=== PATIENT | male | born 2000 | race Caucasian/White ===

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

== ENCOUNTER 2021-02-01 10:53 | Emergency (ER) | payer OTHER, SELFPAY ==
--- NOTE | ~2021-02-01 | XR_ITS ---
EXAMINATION: XR knee RT min 4V DATE: 02/01/2021 11:20 INDICATION: Anterior right knee pain after knee gave out and popped TECHNIQUE: Anteroposterior, 2 oblique, sunrise and crosstable lateral views of the right knee were ob tained COMPARISON: None. FINDINGS: Alignment is normal. No fracture. No joint effusion/layering lipohemarthrosis. Soft tissues are unre markable. IMPRESSION: 1. Negative right knee radiographs. Reviewed, dictated and finalized at location A.
[2021-02-01 11:01] VITALS: BP 132/79; PULSE 75; RESP 16; TEMP 36.9; O2SAT 100
--- NOTE | 2021-02-01 11:24 | PC.NURSE ---
PT DECLINED ICE FOR COMFORT AND WHEELCHAIR TO RADIOLOGY
--- NOTE | 2021-02-01 11:46 | ED.LOWEXIN ---
HPI - Extremity Injury (Lower) General Chief Complaint: Extremity Injury, Lower Stated Complaint: Right Knee Injury Time Seen by Provider: 02/01/21 11:40 Source: patient and RN notes reviewed Mode of arrival: ambulatory Limitations: no limitations History of Present Illness HPI Narrative: Patient presents today complaining of right knee pain x2 days. Reports he was sitting down and felt his knee pop 2 days ago, then it popped again today and his knee gave out . He has been wearing a knee brace for the last couple of days, which does help when he is ambulating. He is currently pain-free, and the pain is intermittent. He has also been taking ibuprofen. Denies numbness or tingling in the leg or foot. MD complaint: knee injury Related Data Home Medications Medication Instructions Recorded Confirmed No Home Medications 02/01/21 02/01/21 Allergies Allergy/AdvReac Type Severity Reaction Status Date / Time Sulfa (Sulfonamide Allergy Intermediate Hives / Verified 02/01/21 11:14 Antibiotics) Red Face Review of Systems Review of Systems: CONSTITUTIONAL: Denies body aches, fever, chills, or sweats. EYES: Denies visual changes, redness, or discharge. ENT: Denies rhinorrhea, congestion, sore throat, or otalgia. CARDIOVASCULAR: Denies chest pain, palpitations, or edema. RESPIRATORY: Denies cough or dyspnea. GASTROINTESTINAL: Denies abdominal pain, nausea, vomiting, or diarrhea. GENITOURINARY: Denies dysuria or hematuria. SKIN: Denies rash, itching, or wounds. MUSCULOSKELETAL: Denies back pain or myalgia. + Right knee pain NEUROLOGIC: Denies headache, numbness, tingling, or weakness. PSYCH: Denies depression or anxiety. [facility] Past Medical History Medical History ADD (attention deficit disorder) ADHD (attention deficit hyperactivity disorder) Anxiety Bronchitis Fracture, finger right 5th finger Right wrist fracture Strep pharyngitis Surgical History Surgical History History of eye surgery as child Family History Family History Grandparent Diabetes mellitus Social History Social History Smoking status: Never smoker Alcohol intake: never Substance use: never Gender identity (if verbalized by the patient): Male Comments At time of signature, I have reviewed and agree with nursing past medical, surgical, social and family history unless otherwise noted. Please see nursing chart for further information. There is no relevant family history pertinent to the presenting complaint Exam Narrative: GENERAL: Well-appearing, well-nourished, and in no acute distress. HEAD: Normocephalic, atraumatic. EYES: EOMI. No redness or drainage. Conjunctivae normal. ENT: Mucous membranes pink and moist. NECK: Normal AROM. CHEST: No respiratory distress. EXTREMITIES: Right knee: Tenderness to the medial joint line. No edema, ecchymosis, or erythema noted. Pain with full extension. No pain with flexion, internal or external rotation. Distal sensation intact. Capillary refill normal. Posterior tibial pulse normal. SKIN: Warm, dry, no rash. Capillary refill normal. Normal skin turgor. NEURO: No focal deficits. Alert and oriented x3. Gait steady. PSYCH: Normal affect. No signs of depression or anxiety. Course Vital Signs Vital signs: Vital Signs Temperature 98.4 F 02/01/21 11:01 Pulse Rate 75 02/01/21 11:01 Respiratory Rate 16 02/01/21 11:01 Blood Pressure 132/79 02/01/21 11:01 Pulse Oximetry 100 02/01/21 11:01 Temperature 98.4 F 02/01/21 11:01 Pulse Rate 75 02/01/21 11:01 Respiratory Rate 16 02/01/21 11:01 Blood Pressure 132/79 02/01/21 11:01 Pulse Oximetry 100 02/01/21 11:01 Reviewed. Pt has been instructed to follow up w
== END 2021-02-01 11:55 | disposition home or self-care (01) ==
PROVIDERS: Emergency Provider Nurse Practitioner
DX: M25.561 Pain in right knee (principal)
CPT/HCPCS: 73564; 99213; G0463

== ENCOUNTER 2021-04-07 10:30 | Emergency (ER) | payer OTHER, SELFPAY ==
--- NOTE | 2021-04-07 10:39 | ED.GENADULT ---
HPI - General Adult General Chief complaint: Upper Respiratory Infection Stated complaint: Cough/Ear Pain Time Seen by Provider: 04/07/21 10:40 Source: patient Mode of arrival: ambulatory Limitations: no limitations History of Present Illness HPI narrative: 21-year-old male patient presents to the [facility] with complaints of cold symptoms x1 week. Patient states he has had a runny nose, cough, sore throat and yesterday developed some right ear pain. Patient has been fully vaccinated against Covid. Related Data Allergies Allergy/AdvReac Type Severity Reaction Status Date / Time Sulfa (Sulfonamide Allergy Intermediate Hives / Verified 04/07/21 10:43 Antibiotics) Red Face Review of Systems Review of Systems: CONSTITUTIONAL: Denies fever, chills, or sweats. EYES: Denies visual changes, redness, or discharge. ENT: Positive rhinorrhea, congestion, sore throat, and right otalgia. CARDIOVASCULAR: Denies chest pain, palpitations, or edema. RESPIRATORY: Positive cough, denies dyspnea. GASTROINTESTINAL: Denies abdominal pain, nausea, vomiting, or diarrhea. GENITOURINARY: Denies dysuria or hematuria. SKIN: Denies rash or itching. MUSCULOSKELETAL: Denies back pain, joint pain, or myalgia. NEUROLOGIC: Denies headache, numbness, or weakness. PSYCHIATRIC: Denies anxiety or depression. PMFSH Past Medical History Medical History ADD (attention deficit disorder) ADHD (attention deficit hyperactivity disorder) Anxiety Bronchitis Fracture, finger right 5th finger Right wrist fracture Strep pharyngitis Surgical History Surgical History History of eye surgery as child Family History Family History Grandparent Diabetes mellitus Social History Social History Smoking status: Never smoker Alcohol intake: never Substance use: never Gender identity (if verbalized by the patient): Male Comments At the time of my signature I agree with nursing past medical history, surgical, social, and family history. There is no relevant family history pertinent to the presenting complaint. Exam Narrative: GENERAL: Well-appearing, well-nourished, and in no acute distress. HEAD: Normocephalic, atraumatic. EYES: PERRLA and EOMI. ENT: Nares with erythema and edema noted bilaterally, no rhinorrhea or epistaxis. Mucous membranes moist. Posterior pharynx with no erythema, tonsillar edema, exudates or lesions present. Postnasal drip noted to posterior pharynx. Bilateral TMs are clear. There is a little bit of fluid noted behind the right TM. NECK: Supple. No lymphadenopathy CHEST: Clear to auscultation. No respiratory distress. HEART: Regular rate and rhythm. No murmur heard. Normal peripheral pulses. ABDOMEN: Soft, nontender, nondistended, normal active bowel sounds. EXTREMITIES: Normal range of motion. No edema. SKIN: Warm, dry, no rash. NEURO: No focal deficits. Alert and oriented x3. Course Reevaluation(s) Reevaluation #1: Reevaluated patient notified him that his rapid Covid and strep are both negative today. Discussed with him I think this is most likely a sinusitis therefore we will discharge him home with a daily antihistamine and nasal steroid if his ear pain continues to worsen despite the medications I would encourage him to be reevaluated for possible antibiotics. We are going to try and prevent infection to the ear however if he continues to have symptoms he may need antibiotics for an infection in the future. Patient verbalized understanding denies any other questions or concerns at this time. Date: 04/07/21 Time: 11:14 Vital Signs Vital signs: Vital Signs Temperature 36.9 C 04/07/21 10:44 Pulse Rate 75 04/07/21 10:44 Respiratory Rate 16 04/07/21 10:44 Blood Pressure 133/74 04/07/21 10:44 Pu
[2021-04-07 10:44] VITALS: BP 133/74; PULSE 75; RESP 16; TEMP 36.9; O2SAT 100
== END 2021-04-07 11:19 | disposition home or self-care (01) ==
PROVIDERS: Emergency Provider Nurse Practitioner Family
DX: J01.90 Acute sinusitis, unspecified (principal); Z20.822 Contact with and (suspected) exposure to COVID-19
CPT/HCPCS: 87081; 87426; 87880; 99213; C9803; G0463

== ENCOUNTER 2021-04-10 08:17 | Emergency (ER) | payer OTHER, SELFPAY ==
[2021-04-10 08:30] VITALS: BP 126/70; PULSE 98; RESP 16; TEMP 36.9; O2SAT 98
--- NOTE | 2021-04-10 08:33 | ED.URI ---
HPI - URI/Sore Throat General Chief Complaint: Upper Respiratory Infection Stated Complaint: cough ears History of Present Illness HPI Narrative: This is a 21-year-old male that presents to the urgent care complaining of cough congestion and feeling well. According to patient he was seen here few days ago was ordered Zyrtec states that they could not afford it at the time just picked up some generic Zyrtec yesterday took 1 dose and comes back because he still not feeling well. Patient is fully vaccinated Related Data Allergies Allergy/AdvReac Type Severity Reaction Status Date / Time Sulfa (Sulfonamide Allergy Intermediate Hives / Verified 04/10/21 08:39 Antibiotics) Red Face Review of Systems Review of Systems: Cough congestion sinus drainage CONSTITUTIONAL: Denies fever, chills, or sweats. ENT: Reports rhinorrhea, congestion, sore throat, or otalgia. RESPIRATORY: Reports cough or dyspnea. All systems reviewed & are unremarkable except as noted in HPI and below PMFSH Past Medical History Medical History ADD (attention deficit disorder) ADHD (attention deficit hyperactivity disorder) Anxiety Bronchitis Fracture, finger right 5th finger Right wrist fracture Strep pharyngitis Surgical History Surgical History History of eye surgery as child Family History Family History Grandparent Diabetes mellitus Social History Social History Smoking status: Never smoker Alcohol intake: never Substance use: never Gender identity (if verbalized by the patient): Male Comments At time as signature, I have reviewed and agree with nursing past medical, social, surgical and family history. Please see nursing chart for further information. There is no relevant family history pertinent to the presenting complaint. Exam Narrative: GENERAL:Well-appearing, well-nourished, and in no acute distress. HEAD:Normocephalic, atraumatic. EYES: PERRLA and EOMI. ENT: Nares clear, no rhinorrhea or epistaxis. Mucous membranes moist. NECK: Supple. CHEST: Clear to auscultation. No respiratory distress. HEART: Regular rate and rhythm. No murmur heard. Normal peripheral pulses. ABDOMEN: Soft, nontender, nondistended, normal active bowel sounds. EXTREMITIES: Normal range of motion. No edema. SKIN: Warm, dry, no rash. NEURO: No focal deficits. Alert and oriented x3. Course Vital Signs Vital signs: Vital Signs Temperature 98.4 F 04/10/21 08:30 Pulse Rate 98 04/10/21 08:30 Respiratory Rate 16 04/10/21 08:30 Blood Pressure 126/70 04/10/21 08:30 Pulse Oximetry 98 04/10/21 08:30 Temperature 98.4 F 04/10/21 08:30 Pulse Rate 98 04/10/21 08:30 Respiratory Rate 16 04/10/21 08:30 Blood Pressure 126/70 04/10/21 08:30 Pulse Oximetry 98 04/10/21 08:30 MDM - URI/Sore Throat Differential Diagnosis Differential diagnosis: Likely upper respiratory infection, viral infection and influenza Lab Data Labs: Influenza A Screen Positive Reference Range: Negative Influenza B Screen Negative Reference Range: Negative Discharge Plan Discharge Clinical Impression: Viral infection, Influenza A Patient Disposition: Home, Self-Care Condition: Stable Instructions: Antibiotic Form, Influenza (ED) Additional Instructions: Viral illness may last between 7-12days; antibiotic is NOT recommended at this time. Recommend antihistamine such as Benadryl at night time and Claritin/Zyrtec/Candace during the day Also, recommend symptomatic treatment includes: rest, fluids, and increase humidity of the air at home. Recommend Acetaminophen or nonsteroidal anti-inflammato
== END 2021-04-10 09:10 | disposition home or self-care (01) ==
PROVIDERS: Emergency Provider Nurse Practitioner Family
DX: B34.9 Viral infection, unspecified (principal); J10.1 Influenza due to other identified influenza virus with other respiratory manifestations
CPT/HCPCS: 87804; 99213; G0463

== ENCOUNTER 2021-07-15 08:32 | Emergency (ER) | payer OTHER, SELFPAY ==
[2021-07-15 08:38] VITALS: BP 121/68; PULSE 113; RESP 20; TEMP 37.2; O2SAT 98
--- NOTE | 2021-07-15 08:59 | ED.URI ---
HPI - URI/Sore Throat General Chief Complaint: Upper Respiratory Infection Stated Complaint: congestion cough tight chest chills Time Seen by Provider: 07/15/21 08:52 Source: patient and RN notes reviewed Mode of arrival: ambulatory Limitations: no limitations History of Present Illness HPI Narrative: Patient presents today complaining of 5-day history of cough, body aches, chills and sweats, headache. Symptoms have worsened over the last 3 days. Denies shortness of breath, fever. He has been taking Tylenol with some relief. He has not been vaccinated against influenza. MD elicited complaint: cough Related Data Home Medications Medication Instructions Recorded Confirmed No Home Medications 07/15/21 07/15/21 Allergies Allergy/AdvReac Type Severity Reaction Status Date / Time Sulfa (Sulfonamide Allergy Intermediate Hives / Verified 07/15/21 08:50 Antibiotics) Red Face Review of Systems Review of Systems: CONSTITUTIONAL: Denies fever. + Body aches, chills, sweats EYES: Denies visual changes, redness, or discharge. ENT: Denies rhinorrhea, congestion, sore throat, or otalgia. CARDIOVASCULAR: Denies chest pain, palpitations, or edema. RESPIRATORY: Denies dyspnea.+ Cough GASTROINTESTINAL: Denies abdominal pain, nausea, vomiting, or diarrhea. GENITOURINARY: Denies dysuria or hematuria. SKIN: Denies rash, itching, or wounds. MUSCULOSKELETAL: Denies back pain, joint pain, or myalgia. NEUROLOGIC: Denies numbness, tingling, or weakness.+ Headache PSYCH: Denies depression or anxiety. [facility] Past Medical History Medical History ADD (attention deficit disorder) ADHD (attention deficit hyperactivity disorder) Anxiety Bronchitis Fracture, finger right 5th finger Right wrist fracture Strep pharyngitis Surgical History Surgical History History of eye surgery as child Family History Family History Grandparent Diabetes mellitus Social History Social History Smoking status: Never smoker Alcohol intake: never Substance use: never Gender identity (if verbalized by the patient): Male Comments At time of signature, I have reviewed and agree with nursing past medical, surgical, social and family history unless otherwise noted. Please see nursing chart for further information. There is no relevant family history pertinent to the presenting complaint Exam Narrative: GENERAL: Well-appearing, well-nourished, and in no acute distress. HEAD: Normocephalic, atraumatic. EYES: EOMI. No redness or drainage. Conjunctivae normal. ENT: Mucous membranes pink and moist. Nares congested. No rhinorrhea. TMs normal bilaterally. Throat normal. Uvula midline. NECK: Normal AROM. Supple. No lymphadenopathy. CHEST: No respiratory distress. Clear to auscultation. HEART: Regular rate and rhythm. No murmur appreciated. Normal peripheral pulses. EXTREMITIES: Normal range of motion. No edema. SKIN: Warm, dry, no rash. Capillary refill normal. Normal skin turgor. NEURO: No focal deficits. Alert and oriented x3. Gait steady. PSYCH: Normal affect. No signs of depression or anxiety. Course Course Level of Care: Express Care Visit Vital Signs Vital signs: Vital Signs Temperature 99.0 F 07/15/21 08:38 Pulse Rate 113 H 07/15/21 08:38 Respiratory Rate 20 07/15/21 08:38 Blood Pressure 121/68 07/15/21 08:38 Pulse Oximetry 98 07/15/21 08:38 Temperature 99.0 F 07/15/21 08:38 Pulse Rate 113 H 07/15/21 08:38 Respiratory Rate 20 07/15/21 08:38 Blood Pressure 121/68 07/15/21 08:38 Pulse Oximetry 98 07/15/21 08:38 Reviewed. Pt has been instructed to follow up with his PCP regarding his elevated blood pressure today. MDM - URI/Sore Throat Differential
== END 2021-07-15 09:05 | disposition home or self-care (01) ==
PROVIDERS: Emergency Provider Nurse Practitioner
DX: J10.1 Influenza due to other identified influenza virus with other respiratory manifestations (principal)
CPT/HCPCS: 87804; 99213; G0463

== ENCOUNTER 2022-02-07 09:27 | Emergency (ER) | payer OTHER, SELFPAY ==
[2022-02-07 09:36] VITALS: BP 136/69; PULSE 70; RESP 16; TEMP 37.1; O2SAT 99
--- NOTE | 2022-02-07 10:36 | ED.URI ---
HPI - URI/Sore Throat General Chief Complaint: Upper Respiratory Infection Stated Complaint: Sore throat cough head and ears Time Seen by Provider: 02/07/22 10:36 Source: patient, RN notes reviewed and old records reviewed Mode of arrival: ambulatory Limitations: no limitations History of Present Illness HPI Narrative: 22 year old male who presents to [facility] care with complaints of cough, nasal congestion, sore throat and right ear pain for one week duration. Patient reports that his girlfriend was diagnosed with flu 2 days ago. Patient reports that he has had COVID vaccinations and Booster,denies any body aches, has had low grade temps with some chills.Patient report that he is taking some OTC Tylenol and Ibuprofen for his symptoms. MD elicited complaint: cough, sore throat and other (ear pain) Pertinent past history: other (strep throat) Onset (ago): week(s) (1) Pain scale (0-10): 3 Related Data Allergies Allergy/AdvReac Type Severity Reaction Status Date / Time Sulfa (Sulfonamide Allergy Intermediate Hives / Verified 07/15/21 08:50 Antibiotics) Red Face Review of Systems Review of Systems: CONSTITUTIONAL: Reports malaise, chills, sweats, low grade fever. EYES: Denies visual changes, redness, or discharge. ENT: Reports rhinorrhea, congestion, sinus pain, right otalgia and sore throat. CARDIOVASCULAR: Denies chest pain, palpitations, or edema. RESPIRATORY: Reports cough.? Denies dyspnea. GASTROINTESTINAL: Denies abdominal pain, nausea, vomiting, diarrhea SKIN: Denies rash or itching. MUSCULOSKELETAL: Denies myalgia. NEUROLOGIC: reports headache. All systems reviewed & are unremarkable except as noted in HPI and below PMFSH Past Medical History Medical History ADD (attention deficit disorder) ADHD (attention deficit hyperactivity disorder) Anxiety Bronchitis Fracture, finger right 5th finger Right wrist fracture Strep pharyngitis Surgical History Surgical History History of eye surgery as child Family History Family History Grandparent Diabetes mellitus Social History Social History (Reviewed 02/09/22 @ 10:59 by AGUS Brown Smoking status: Never smoker Alcohol intake: never Substance use: never Gender identity (if verbalized by the patient): Male Comments At time of signature, agree with nursing past medical, surgical, social and family history. There is no relevant family history pertinent to the presenting complaint Exam Narrative: GENERAL: Well-appearing, well-nourished, and in no acute distress. HEAD: Normocephalic EYES: PERRLA, conjunctivae clear ENT: Nares clear, turbinates edematous and erythematous, clear discharge. Mucous membranes moist. TM pearly saul with dull light reflex bilaterally; no tragal tenderness. Oropharynx erythematous without lesions. Tonsils not enlarged and without exudate, no drooling, no hoarseness, no trismus, uvula midline. NECK: Supple. No lymphadenopathy CHEST: Clear to auscultation, breath sounds equal. No wheezing, rhonchi, rales, or stridor. No respiratory distress, speaks in full sentences.cough noted with SAO2 99% on room air HEART: Regular rate and rhythm. No murmur heard. SKIN: Warm, dry, no rash. NEURO: Alert and oriented x3. PSYCH: Normal mood and affect Course Course Emergency Course: Patient is aware of diagnosis, understands and agrees to treatment plan.? Anticipatory guidance given.? Patient agrees to follow-up as directed and is aware of reasons to seek care at the emergency department. Portions of this record may have been created with voice recognition software Level of Care: Express Care Visit Vital Signs Vital signs: Vital Signs Temperature 37.1 C 02/07/22 09:36 Pulse Rate 70 02/07/22 09:36 Respiratory Rate 16
== END 2022-02-07 10:59 | disposition home or self-care (01) ==
PROVIDERS: Emergency Provider Registered Nurse; PCP Family Medicine
DX: J06.9 Acute upper respiratory infection, unspecified (principal); H92.01 Otalgia, right ear
CPT/HCPCS: 87804; 99213; G0463

== ENCOUNTER 2022-04-10 08:58 | Emergency (ER) | payer OTHER, SELFPAY ==
[2022-04-10 09:00] VITALS: BP 115/60; PULSE 84; RESP 20; TEMP 37; O2SAT 100
--- NOTE | 2022-04-10 09:07 | ED.DENTAL ---
HPI - Dental/Oral General Chief complaint: Dental/Oral Stated complaint: Toothache Time Seen by Provider: 04/10/22 09:07 Source: patient and RN notes reviewed History of Present Illness HPI Narrative: patient is a 22-year-old male who presents to urgent care with complaints of upper and lower right-sided dental pain. Patient states it started 2 weeks ago. Denies any fevers, nausea, vomiting. States he has been taking ibuprofen and Tylenol for the pain. Patient has not seen his dentist. No other acute complaints. No acute distress noted. Patient aware of the plan of care. Some parts of this dictation were generated by voice recognition software and may contain typographical and/or grammatical inaccuracies. Related Data Allergies Allergy/AdvReac Type Severity Reaction Status Date / Time Sulfa (Sulfonamide Allergy Intermediate Hives / Verified 07/15/21 08:50 Antibiotics) Red Face Review of Systems Review of Systems: CONSTITUTIONAL: Denies fever, chills, or sweats. EYES: Denies visual changes, redness, or discharge. ENT: Denies rhinorrhea, congestion, sore throat, or otalgia. Reports of right upper and lower dental pain CARDIOVASCULAR: Denies chest pain, palpitations, or edema. RESPIRATORY: Denies cough or dyspnea. GASTROINTESTINAL: Denies abdominal pain, nausea, vomiting, or diarrhea. GENITOURINARY: Denies dysuria or hematuria. SKIN: Denies rash or itching. MUSCULOSKELETAL: Denies back pain, joint pain, or myalgia. NEUROLOGIC: Denies headache, numbness, or weakness. All other systems reviewed are negative, except as documented in HPI. [facility] Past Medical History Medical History ADD (attention deficit disorder) ADHD (attention deficit hyperactivity disorder) Anxiety Bronchitis Fracture, finger right 5th finger Right wrist fracture Strep pharyngitis Surgical History Surgical History History of eye surgery as child Family History Family History Grandparent Diabetes mellitus Social History Social History Smoking status: Never smoker Alcohol intake: never Substance use: never Gender identity (if verbalized by the patient): Male Comments At the time of my signature, I reviewed and agree with the nursing past medical, surgical, social, and family history. There is no relevant family history pertinent to the patient complaint. Exam Narrative: GENERAL: This is a well-nourished, well-developed patient, in no apparent distress. HEAD: normocephalic, atraumatic. EYES: PERRL. Sclera clear/white. Vision is grossly intact. EARS: External ears normal, auditory canals clear and without drainage, TMs normal without perforation. Hearing grossly intact. NOSE: External nose normal with no obvious nasal discharge, nares without redness, no rhinorrhea. THROAT: Mucous membranes moist, posterior pharynx clear. DENTAL: tooth number 32 cutting through the gumline with mild surrounding erythema without edema or abscess. Tooth 1 Cutting through the gum line without edema. NECK: Neck supple, non-tender without lymphadenopathy, masses or thyromegaly. CARDIOVASCULAR: Regular rate and rhythm without murmurs, gallops, or rubs. RESPIRATORY: Clear to auscultation. Breath sounds equal bilaterally. No wheezes, rales, or rhonchi. SKIN: warm, intact with no suspicious lesions or rash, good texture and turgor. NEURO: awake, alert, and oriented to person, place and time. There were no obvious focal neurologic abnormalities. EXTREMITIES: No clubbing, cyanosis, or edema. Course Course Level of Care: Express Care Visit Vital Signs Vital signs: Vital Signs Temperature 98.6 F 04/10/22 09:00 Pulse Rate 84 04/10/22 09:00 Respiratory Rate 20 04/10/22 09:00 Blood Pressure 115/60 04/10/22 09:00 Pu
== END 2022-04-10 09:38 | disposition home or self-care (01) ==
PROVIDERS: Emergency Provider Nurse Practitioner Family
DX: K08.89 Other specified disorders of teeth and supporting structures (principal)
CPT/HCPCS: 99213; G0463

== ENCOUNTER 2025-01-06 09:29 | Emergency (ER) | payer SELFPAY ==
--- OUTSIDE RECORDS SUMMARY | 2025-01-06 09:31 | XMS_ITS | Clinical Summary ---
Author Organization [facility] Address [address] [place] [address] Care Team Providers Care Customer Development Manager Name Role Phone Unavailable Primary Care Provider Unavailabl e Allergies Active Allergy Reactions Criticality Noted Date Comments Sulfa (Sulfonamide Antibiotics) Hives Medium 06/09/2017 Sulfamethoxazole Other (See comments) Reaction: hives 8-28-12, Medications sertraline (ZOLOFT) 50 mg tabletIndication s:Generalized anxiety disorder Take 1 tablet (50 mg total) by mouth daily 90 tablet 1 08/20/2022 Active Active Problems Problem Noted Date Diagnosed Date Developmental delay 03/02/2020 Myopia 09/03/2013 Overview (07/25/2016): Myopia Body mass index (BMI) of 29.0 to 29.9 in adult 0 08/04/2013 Overview (03/02/2020): Assessment & Plan (03/02/2020 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 Generalized anxiety disorder 08/03/2013 Overview (03/02/2020): Assessment & Plan (08/25/2022 4:05 PM CDT): New start on sertraline, Take as directed. Go to nearest ER if you feel you may be a harm to yourself or to someone else. Strongly encouraged therapy. Patient given information about local counselors in a handout packet. Assessment & Plan (03/02/2020 10:36 AM TRIMMING ASSEMBLER): Recommend returning to [facility] for counseling. Referred to Psychiatry for further eval/mgmt. Continue hydroxyzine, changed Rx to 25 mg qhs prn rather than 50 mg qid as previously written by urgent care. Resolved Problems Problem Noted Date Diagnosed Date Resolved Date Pain in wrist 04/07/2016 03/02/2020 Overview (07/25/2016): Wrist pain Knee pain 08/09/2015 03/02/2020 Overview (07/25/2016): Knee pain Headache 07/11/2015 03/02/2020 Overview (07/25/2016): Headache Otitis media 03/22/2015 03/02/2020 Overview (07/25/2016): Otitis media Acute streptococcal pharyngitis 09/12/2014 03/02/2020 Overview (07/25/2016): Streptococcal pharyngitis Low ferritin level 08/04/2013 0 Overview (07/24/2016): Low ferritin Medical examinations/reports status 2001 03/02/2020 Overview (07/24/2016): Health care maintenance Immunizations Immunization Administration Dates Next Due DTaP 10/07/2005, 3,2001,06/16,2001 DTaP 5 Pertussis 10/07/2005, 3,2001,06/16,2001 HPV, Quadrivalent 03/02/2013,12/06/2012,01/21/20 12 Hep A, Pediatric 12/06/2012,01/21/2012, 6 Hep B / HiB 2001,2001 Hep B, Adolescent or Pediatric 2001,2001,2001 HiB 07/27/2002,2001 Hib (HbOC) 07/27/2002, 2,2001,04/28 IPV 10/07/2005, 2,2001,04/28 Influenza, Quadrivalent, Spl it, Preservative Free, Intramuscular 03/10/2016,03/13/2014,03/02/2013 Influenza, Split 01/04/2010 Influenza, Trivalent, Preser vative Free, Intramuscular 01/21/2012 MMR 10/07/2005,02/09/2002 Meningococcal B, OMV (Bexsero) 04/29/2018,2017 Meningococcal MCV4P (Menactra) 12/07/2017,2011 Pneumococcal Conjugate 7-Valent 2001,06/16,2001 Tdap 01/21/2012 Varicella 01/21/2012,02/09/2002 Surgical History Surgery Date Site/Laterality Comments OTHER SURGICAL HISTORY B - FX L radius: Dr. Foy EYE SURGERY Left Medical History Medical History Date Comments Hx Other Medical 2000 6-1 weigh t Hx Other Medical 2002 A - Eye muscle SX X 2 ?dates Hx Other Medical 04/05/2016 B - FX L radius ; Comments: [facility] 04/07/2016 - Fractured hand 07/12/2018 R 5th metacarpal ; Dr. Foy Anemia Dyslexia Family History Medical History Relation Name Comments COPD Maternal Grandmother Hypertension Maternal Grandmother Asthma Other 1 Family history of Asthma; Diabetes Other 2 Family history of Diabetes mellitus; Hyperlipidemia Other 3 Family histor y of Hyperlipidemia; Hypertension Other 4 Family history of Hypertension; Stroke Other 5 Family history of Stroke; Other Other 6 No family histo ry of Sudden <50; Relation Name Status Comments Father Alive Maternal Grandmother Alive Mother Alive Other 1 Other 2 Other 3 Other 4 Other 5 Other 6 Social History Tobacco Use Types Packs/Day Years Used Date Smoking Tobacco: Never PHQ-2 Answer Date Recorded PHQ-2 Total Score (If total score is 3 or more points, staff should administer the PHQ-9) 4 08/20/2022 Sex and Gender Information Value Date Recorded Sex Assigned at Not on file Legal Sex Male 9:45 AM TRIMMING ASSEMBLER Gender Identity Not on file Sexual Orientation Not on file Obstetrics History Last Filed Vital Signs Vital Sign Reading Time Taken Comments Blood Pressure 130/68 08/20/2022 1:25 PM CDT Pulse 69 08/20/2022 1:25 PM CDT Temperature 36.6 C (97.8 F) 08/20/2022 1:25 PM CDT Respiratory Rate 18 08/20/2022 1:25 PM CDT Oxygen Saturation 99% 08/20/2022 1:25 PM CDT Inhaled Oxygen Concentration - - Weight 99.3 kg (219 lb) 08/20/2022 1:25 PM CDT Height 182.9 cm (6' 0.01) 08/20/2022 1:25 PM CD T Body Mass Index 29.7 08/20/2022 1:25 PM CDT Plan of Treatment Health Maintenance Due Date Last Done Comments Hepatitis C Screening 2001 Regular Well Visit/Exam 18-64 2019 DTaP/Tdap/Td Vaccine (7 - Td or Tdap) 01/20/2022 01/21/2012, 10/07/2005, 10/07/2005, Additional history exists Depression Screening 08/21/2023 08/20/2022, 08/20/2022, 03/02/2020 Covid-19 Vaccine ( season) 2024 04/04/2021, 10/18/2020, 09/18/2020 Influenza Vaccine (#1) 2024 6, 03/13/2014, 03/02/2013, Additional history exists Hepatitis B Screening Completed 2001 , 2001, 2001, Additional history exists Pneumococcal vaccine <65 Aged Out 002, 2001, 2001 No longer eligible based on patient's age to complete this topic Varicella Vaccines Completed 01/21/2012, 02/09/2002 HPV Vaccines Completed 03/02/2013, 11/18, 01/21/2012 Meningococcal B Vaccine Completed 04/29/2018, 12/07 Insurance [employer]TER [facility] [employer] [facility]
--- OUTSIDE RECORDS SUMMARY | 2025-01-06 09:31 | XMS_ITS | Clinical Summary ---
Author Organization [facility] Address [address] [place] [address] Phone Care Team Providers Care Supervisor Burling And Joining Name Role Phone Luz aMria Anderson Primary Care Provider [phone] Allergies Active Allergy Reactions Criticality Noted Date Comments Sulfa Antibiotics Hives 06/09/2017 Medications traMADol (ULTRAM) 50 MG TabletIndicatio ns:Acute pain of right knee Take 1 Tablet by mouth every 8 hours as needed for Moderate or more severe pain. 12 Tablet 03/01/2022 Active naproxen (NAPROSYN) 500 MG Tablet Take 1 Tablet by mouth 2 times daily (with meals). 20 Tablet 03/01/2022 Active Social History Tobacco Use Types Packs/Day Years Used Date Smoking Tobacco: Never Smokeless Tobacco: Never Alcohol Use Standard Drinks/Week Comments No 0 (1 standard drink = 0.6 oz pur e alcohol) Sex and Gender Information Value Date Recorded Sex Assigned at Not on file Legal Sex Male 7:54 PM CDT Gender Identity Not on file Sexual Orientation Not on file Last Filed Vital Signs Vital Sign Reading Time Taken Comments Blood Pressure 145/75 03/01/2022 2:31 PM PHOTOGRAPHIC SUPERVISOR Pulse 80 03/01/2022 2:31 PM PHOTOGRAPHIC SUPERVISOR Temperature 36.2 C (97.2 F) 03/01/2022 1:19 PM PHOTOGRAPHIC SUPERVISOR Respiratory Rate 16 03/01/2022 2:31 PM PHOTOGRAPHIC SUPERVISOR Oxygen Saturation 98% 03/01/2022 2:31 PM PHOTOGRAPHIC SUPERVISOR Inhaled Oxygen Concentration - - Weight 104.3 kg (230 lb) 03/01/2022 1:16 PM PHOTOGRAPHIC SUPERVISOR Height 182.9 cm (6') 03/01/2022 1:16 PM PHOTOGRAPHIC SUPERVISOR Body Mass Index 31.19 03/01/2022 1:16 PM PHOTOGRAPHIC SUPERVISOR Plan of Treatment Health Maintenance Due Date Last Done Comments Hepatitis C Virus (HCV) Screening 2001 Influenza Immunization (#1) 12/19/202402/19, 03/13/2014, 03/02/2013, Additional history exists SARS-COV-2 Immunization ( - 2024- season) 2024 04/04/2021, 10/18/2020, 09/18/2020 Respiratory Syncytial Virus (RSV) Immunization (Adult) (1 - 1-dose 75+ series) 01/14/2076 Hepatitis B Immunization Completed 002, 2001, 2001, Additional history exists Pneumococcal Immunization Combined Aged Out 2001, 2001, 2001 No longer eligible based on patient's age to complete this topic Measles Mumps Rubella (MMR) Immunization Discontinued 10/07/2005, 02/09/2002 Polio (IPV) Immunization Discontinued 006, 2001, 2001, Additional history exists DTaP/Tdap/Td Immunization Discontinued 2011, 10/07/2005, 07/27/2002, Additional history exists TdaP Immunization Completed 01/21/2012 Varicella Immunization Discontinued 01/21/2012, 2001 Hepatitis A Immunization Discontinued 013, 01/21/2012, 10/07/2005 Human Papillomavirus (HPV) Immunization Completed 03/02/2013, 12/06/2012, 01/21/2012 Meningococcal Immunization (ACWY) Completed 12/07/2017, 01/21/2012 Meningococcal B Immunization Completed 04/29/2018, 12/07/2017 Rotavirus Immunization Aged Out No lo nger eligible based on patient's age to complete this topic Insurance MEDICAID [facility]ETNA [facility] Care Teams Supervisor Burling And Joining Relationship Specialty Start Date End Date Luz Maria Anderson DO [address] [place] [address] [place] [address] PCP - General Family Medicine 03/01/22
[2025-01-06 09:34] VITALS: BP 128/81; PULSE 67; RESP 16; TEMP 36.9; O2SAT 100
--- NOTE | 2025-01-06 09:39 | ED.URI ---
HPI - URI/Sore Throat General Chief Complaint: Upper Respiratory Infection Stated Complaint: runny nose, conjestion, puking, cough Time Seen by Provider: 01/06/25 10:07 Source: patient and RN notes reviewed Mode of arrival: ambulatory Limitations: no limitations History of Present Illness HPI Narrative: 24-year-old male presents with concern for runny nose. He reports yesterday he was coughing, he took cold medicine which caused him to have 1 episode of vomiting. He reports sore throat yesterday that is resolved. He denies fever, aches, chills, sweats. Reports his daughter has similar symptoms. MD elicited complaint: nasal congestion Related Data Allergies Allergy/AdvReac Type Severity Reaction Status Date / Time Sulfa (Sulfonamide Allergy Intermediate Hives / Verified 01/06/25 09:44 Antibiotics) Red Face Review of Systems Review of Systems: CONSTITUTIONAL: Denies malaise, chills, sweats, or fever. EYES: Denies visual changes, redness, or discharge. ENT: Reports rhinorrhea, congestion,and sore throat. CARDIOVASCULAR: Denies chest pain, palpitations, or edema. RESPIRATORY: Reports cough. Denies dyspnea. GASTROINTESTINAL: Denies abdominal pain, nausea, diarrhea. Reports 1 episode of vomiting SKIN: Denies rash or itching. MUSCULOSKELETAL: Denies myalgia. NEUROLOGIC: Denies headache. All systems reviewed & are unremarkable except as noted in HPI and below PMFSH Past Medical History Medical History ADD (attention deficit disorder) ADHD (attention deficit hyperactivity disorder) Anxiety Bronchitis Fracture, finger right 5th finger Right wrist fracture Strep pharyngitis Surgical History Surgical History History of eye surgery as child Family History Family History Grandparent Diabetes mellitus Social History Social History Smoking status: Never smoker Alcohol intake: never Substance use: never Living arrangements: with family Gender identity (if verbalized by the patient): Male Comments At time of signature, agree with nursing past medical, surgical, social and family history. There is no relevant family history pertinent to the presenting complaint Exam Narrative: GENERAL: Well-appearing, well-nourished, and in no acute distress. HEAD: Normocephalic EYES: PERRLA, conjunctivae clear ENT: Nares clear. Mucous membranes moist. TM pearly saul with dull light reflex bilaterally; no tragal tenderness. Oropharynx not erythematous without lesions. Tonsils not enlarged and without exudate, no drooling, no hoarseness, no trismus, uvula midline. NECK: Supple. No lymphadenopathy CHEST: Clear to auscultation, breath sounds equal. No wheezing, rhonchi, rales, or stridor. No respiratory distress, speaks in full sentences. HEART: Regular rate and rhythm. No murmur heard. SKIN: Warm, dry, no rash. NEURO: Alert and oriented x3. PSYCH: Normal mood and affect Course Course Emergency Course: Patient is aware of diagnosis, understands and agrees to treatment plan. Anticipatory guidance given. Patient agrees to follow-up as directed and is aware of reasons to seek care at the emergency department. Portions of this record may have been created with voice recognition software Level of Care: Express Care Visit Vital Signs Vital signs: Vital Signs Temperature 98.5 F 01/06/25 09:34 Pulse Rate 67 01/06/25 09:34 Respiratory Rate 16 01/06/25 09:34 Blood Pressure 128/81 01/06/25 09:34 Pulse Oximetry 100 01/06/25 09:34 Oxygen Delivery Room Air 01/06/25 09:34 Temperature 98.5 F 01/06/25 09:34 Pulse Rate 67 01/06/25 09:34 Respiratory Rate 16 01/06/25 09:34 Blood Pressure 128/81 01/06/25 09:34 Pulse Oximetry 100 01/06/25 09:34 Oxygen Delivery Room Air 01/06/25 09:34 Reviewed. MDM - URI/Sore Throat MDM Narrative Medical decision making narrative: Differential diagnosis considered: Parsons virus, strep pharyngitis, allergic rhinitis, upper respiratory tract infection, sinusitis, rhinosinusitis, nasopharyngitis. viral pharyngitis, otitis media, otitis externa, pneumonia, bronchitis, viral cough syndrome, viral syndrome, and influenza. Exam findings show no acute concerns or changes; patient is non-toxic appearing and is in no distress. Patient is appropriate for outpatient treatment and follow-up. Lab Data Attestation: I reviewed the patient's lab results. Critical Care Time Critical Care Time Critical Care Time: No Discharge Plan Discharge Clinical Impression: Upper respiratory infection Patient Disposition: Home Condition: Stable Instructions: Upper Respiratory Infection (ED) Additional Instructions: Your COVID and flu tests are negative Your rapid strep swab was negative today at [facility]. A throat culture will be sent to the laboratory for further testing. If the test is positive, you will receive a phone call within 48 hours and an appropriate antibiotic will be initiated at that time. Your symptoms are likely due to a viral illness, which is not treated with antibiotics. Viral symptoms can be present for up to a few weeks. -Alternate Tylenol and Motrin per package directions for fever or pain. -Antihistamine medication such as Benadryl at night and Zyrtec during the day can help improve symptoms. -Eat and drink things that are easy to swallow, like tea or soup, or popsicles to suck on. -Oral rinses such as: Salt water gargles and/or may use topical anesthetic (eg. Chloraseptic spray) or lozenges to relieve dryness or throat pain). -Frequent hand washing or hand assistant director of plant operations is one of the best ways to prevent spread of infection. -Follow up with primary care provider in 2-3 days if condition is not improving; or seek ER visit if you have trouble breathing, cannot drink enough fluids, have muffled voice, difficulty opening your mouth, or severe swelling. Patient Language: Algerian Prescriptions: New pseudoephedrine HCl [12 Hour Decongestant] 120 mg tablet extended release 120 mg PO Q12H PRN (Reason: nasal congestion) Qty: 20 0RF dextromethorphan-guaifenesin [Mucinex DM] 60-1,200 mg tablet extended release 12 hr 1 tablet PO Q12H Qty: 12 0RF Follow-up/Referrals: UNKNOWN,DOCTOR [Primary Care Provider] Time of Disposition: 10:14
[2025-01-06 10:03] LABS: EDCOVIDSCREEN Negative (Negative); EDSTREPNEGPOS1 Negative (Negative)
[2025-01-06 10:03] LABS: EDINFLUASCREEN Negative (Negative); EDINFLUBSCREEN Negative (Negative)
== END 2025-01-06 10:18 | disposition home or self-care (01) ==
PROVIDERS: Emergency Provider Nurse Practitioner
DX: J06.9 Acute upper respiratory infection, unspecified (principal); Z20.822 Contact with and (suspected) exposure to COVID-19
CPT/HCPCS: 87081; 87426; 87804; 87880; 99213; G0463

== ENCOUNTER 2025-04-10 09:05 | Emergency (ER) | payer SELFPAY ==
[2025-04-10 09:10] VITALS: BP 139/82; PULSE 75; RESP 20; TEMP 36.6; O2SAT 99
--- NOTE | 2025-04-10 09:36 | ED_ITS ---
HPI - Dental/Oral General Chief complaint: Dental/Oral Stated complaint: Tooth Pain Time Seen by Provider: 04/10/25 09:15 Source: patient Mode of arrival: ambulatory Limitations: no limitations History of Present Illness HPI Narrative: Ricardo is a 25-year-old male patient presenting to the clinic today with complaints of multiple dental pain. He reports this is been going on for several years and cannot afford to see a dentist. He plans to make an appointment at the [facility] to have his teeth fixed. States he thinks he needs antibiotics as his pain has gotten increasingly worse. Denies any fevers, chills, body aches. Related Data Allergies Allergy/AdvReac Type Severity Reaction Status Date / Time Sulfa (Sulfonamide Allergy Intermediate Hives / Verified 01/06/25 09:44 Antibiotics) Red Face Review of Systems Review of Systems: Pertinent positives per HPI. Patient denies any fever, chills, rash, headache, visual changes, dizziness, cough, shortness of breath, chest pain, palpitations, nausea, vomiting, diarrhea, constipation, abdominal pain, or any urinary issues. PMFSH Past Medical History Medical History ADD (attention deficit disorder) ADHD (attention deficit hyperactivity disorder) Anxiety Bronchitis Fracture, finger right 5th finger Right wrist fracture Strep pharyngitis Surgical History Surgical History History of eye surgery as child Family History Family History Grandparent Diabetes mellitus Social History Social History Smoking status: Never smoker Alcohol intake: never Substance use: never Living arrangements: with family Gender identity (if verbalized by the patient): Male Comments At the time of my signature, I reviewed and agree with the nursing past medical, surgical, social, and family history. There is no relevant family history pertinent to the patient complaint. Exam Narrative: General: Well-developed, well nourished, in no apparent distress Head: Normocephalic, atraumatic Eyes: Pupils equally round and reactive to light bilaterally, EOM intact, sclera and conjunctive clear, no discharge, lids normal Ears: TMs intact and clear, ear canals clear, no drainage, grossly hearing normal. Nose: Nares patent, no discharge, no inflammation, no sinus tenderness. Mouth: Oral pharynx without lesions or masses, very poor dentition, MMM. multiple dental decay with gingival swelling to the posterior molars-bottom and upper and upper incisors Neck: Supple, trachea midline, no enlargement of anterior or posterior cervical nodes, no thyroid masses or goiter palpable. Cardio: Regular rate and rhythm, s1 and s2 normal, no murmur appreciated. Resp: Clear to auscultation bilaterally, no rhonchi, rales, wheezing or rubs Course Course Level of Care: Express Care Visit Vital Signs Vital signs: Vital Signs Temperature 36.6 C 04/10/25 09:10 Pulse Rate 75 04/10/25 09:10 Respiratory Rate 20 04/10/25 09:10 Blood Pressure 139/82 04/10/25 09:10 Pulse Oximetry 99 04/10/25 09:10 Oxygen Delivery Room Air 04/10/25 09:10 Temperature 36.6 C 04/10/25 09:10 Pulse Rate 75 04/10/25 09:10 Respiratory Rate 20 04/10/25 09:10 Blood Pressure 139/82 04/10/25 09:10 Pulse Oximetry 99 04/10/25 09:10 Oxygen Delivery Room Air 04/10/25 09:10 MDM MDM Narrative Medical decision making narrative: At the time of visit patient is resting comfortably on the exam table. Patient appears to be nontoxic. Complaints of multiple dental pain. He reports this is been going on for several years and cannot afford to see a dentist. He plans to make an appointment at the [facility] to have his teeth fixed. States he thinks he needs antibiotics as his pain has gotten increasingly worse. Denies any fevers, chills, body aches. On exam patient has multiple dental decay with gingival swelling to the posterior molars-bottom and upper and upper incisors. Plan: I suspect patient has some toothache/dental caries. Prescription for amoxicillin was sent to the pharmacy. Follow-up with dentist as soon as possible. Supportive measures were discussed with the patient and they voiced understanding discharge instructions and agrees to treatment plan. Return precautions reviewed Differential Diagnosis Differential Diagnosis: Differential diagnostic considerations for dental issues include gingival abscess, dental caries, toothache, dental abscess, fracture of tooth, aphthous ulcer, TMJ. Discharge Plan Discharge Clinical Impression: Toothache, Dental caries Patient Disposition: Home Condition: Stable Instructions: Antibiotic Form, Toothache (ED) Additional Instructions: Take medications as prescribed-amoxicillin Increase fluids and stay well hydrated May take Tylenol/Motrin as needed for pain or fever May apply Orajel to the affected area to help alleviate pain May apply warm or cool compress to the affected area to help alleviate pain Follow-up with your dentist as soon as possible Patient Language: Thai Prescriptions: New amoxicillin 875 mg tablet 875 mg PO Q12H 10 Days Qty: 20 0RF Follow-up/Referrals: PHYSICIAN,ADJUNCT TRAINER [Primary Care Provider, Internal Medicine] Time of Disposition: 09:37 Quality NIHSS Nursing Documentation ED NIHSS nursing documentation: reviewed/agree
--- OUTSIDE RECORDS SUMMARY | 2025-04-10 09:51 | XMS_ITS | Clinical Summary ---
Author Organization [facility] Address [address] [place] [address] Phone Care Team Providers Care Jewel Supervisor Name Role Phone Luz Maria Anderson Primary Care Provider [phone] Allergies Active Allergy Reactions Criticality Noted Date [...] Comments Blood Pressure 145/75 03/01/2022 2:31 PM SUPERVISOR [employer] Pulse 80 03/01/2022 2:31 PM [employer]PER[employer] Temperature 36.2 C (97.2 F) 03/01/2022 1:19 PM [employer] Respiratory Rate 16 03/01/2022 2:31 PM SUPER[employer] Oxygen Saturation 98% 03/01/2022 2:31 PM [employer]PER[employer] Inhaled Oxygen Concentration - - Weight 104.3 kg (230 lb) 03/01/2022 1:16 PM [employer] Height 182.9 cm (6') 03/01/2022 1:16 PM [employer]PER[employer] Body Mass Index 31.19 03/01/2022 1:16 PM [employer]PER[employer] Plan of Treatment Health Maintenance Due Date [...] exists TdaP Immunization Completed 01/21/2012 Varicella Immunization Completed 01/21/2012, 2001 Hepatitis A Immunization Discontinued 013, 01/21/2012, 10/07/2005 Human Papillomavirus (HPV) Immunization Completed 03/02/2013, 12/06/2012, 01/21/2012 Meningococcal Immunization (ACWY) Completed 12/07/2017, 01/21/2012 Meningococcal B Immunization Discontinued 04/29/2018, 12/07/2017 Rotavirus Immunization Aged Out No lo nger eligible based on patient's age to complete this topic Insurance MEDICAID [employer] [facility] Care Teams Jewel Supervisor Relationship Specialty Start Date End Date Luz Maria Anderson DO [address] [place] [address] PCP - General Family Medicine 03/01/22
--- OUTSIDE RECORDS SUMMARY | 2025-04-10 09:52 | XMS_ITS | Clinical Summary ---
Author Organization [facility] Address [address] [place] [address] Care Team Providers Care Mainspring Barrel Assembly Cleaner Name Role Phone Unavailable Primary Care Provider [...] (03/02/2020): Assessment & Plan (03/02/2020 10:45 AM VACUUM FRAME OPERATOR): Weight reduction, daily exercise and dietary modifications [...] packet. Assessment & Plan (03/02/2020 10:36 AM VACUUM FRAME OPERATOR): Recommend returning to [facility] for counseling. Referred to Psychiatry for further [...] on file Legal Sex Male 9:45 AM VACUUM FRAME OPERATOR Gender Identity Not on file Sexual Orientation [...] 02/09/2002 HPV Vaccines Completed 03/02/2013, 11/18, 01/21/2012 Insurance AETNA [facility] AETNA [facility]
== END 2025-04-10 09:43 | disposition home or self-care (01) ==
PROVIDERS: Emergency Provider Nurse Practitioner Family
DX: K08.89 Other specified disorders of teeth and supporting structures (principal); K02.9 Dental caries, unspecified
CPT/HCPCS: 99213; G0463